=== PATIENT | male | born 1945 | race Caucasian/White ===

== ENCOUNTER → 2020-08-15 | Outpatient (CLI) | payer MEDICARE ==
[2015-08-28 15:11] VITALS: BP 152/67
[~2020-08-15] MED LIST: ASPI-886 PO; BENA1TAB6; DILT240C32 PO; LOVA40TA2; METF-658
--- NOTE | 2020-08-15 18:21 | CARD ---
MR#: [id number] Date of Study: 08/15/2020 Ordering Physician: SAMI MCMILLAN, Referring Physician: SAMI MCMILLAN, Tech: Jess Liang CASSY APPROVED REPORT EXAM: Two-dimensional and M-mode echocardiogram with Doppler and color Doppler. Other Information Quality : Good Rhythm : PVC's INDICATION Atrial Fibrillation 2D DIMENSIONS RVDd2.6 (2.9-3.5cm)Left Atrium(2D)4.0 (1.6-4.0cm) IVSd0.8 (0.7-1.1cm)Aortic Root(2D)3.1 (2.0-3.7cm) LVDd5.9 (3.9-5.9cm)LVOT Diameter2.6 (1.8-2.4cm) PWd0.9 (0.7-1.1cm)LVDs4.0 (2.5-4.0cm) FS (%) 31.5 %SV101.3 ml LVEF(%)58.6 (>50%) Aortic Valve AoV Peak Joe.113.2cm/sAoV VTI23.1cm AO Peak GR.5.1mmHgLVOT Peak Joe.90.7cm/s AO Mean GR.3mmHgAVA (VMAX)4.36cm2 MARYSOL (VTI)4.30cm2 Mitral Valve MV E Lqjhjrxk14.1cm/sMV DECEL [id number] MV A Xmuvrxqm37.9cm/sE/A Ratio0.8 Pulmonary Vein S1 Mkanoqsg04.8cm/sD2 Kiwlwvrc54.6cm/s LEFT VENTRICLE The Left Ventricle is borderline dilated. There is normal left ventricular wall thickness. The left v entricular systolic function is normal and the ejection fraction is within normal range. The Ejection Fraction is 55%. There is normal LV segmental wall motion. Transmitral Doppler flow pattern is Grade I-abnormal relaxation pattern. RIGHT VENTRICLE The right ventricle is normal size. The right ventricular systolic function is normal. ATRIA The left atrium is mildly dilated. The right atrium size is normal. The interatrial septum is intact with no evidence for an atrial septal defect or patent foramen ovale as noted on 2-D or Doppler imagi ng. AORTIC VALVE The aortic valve is calcified but opens well. Doppler and Color Flow revealed no significant aortic r egurgitation. There is no significant aortic valvular stenosis. MITRAL VALVE The mitral valve is calcified but opens well. Mitral annular calcification is mild. There is no evide nce of mitral valve prolapse. There is no mitral valve stenosis. Doppler and Color-flow revealed trac e mitral regurgitation. TRICUSPID VALVE The tricuspid valve is normal in structure and function. Doppler and Color Flow revealed no tricuspid valve regurgitation noted. There is no tricuspid valve stenosis. PULMONIC VALVE The pulmonic valve is not well visualized. Doppler and Color Flow revealed trace to mild pulmonic ian vular regurgitation. There is no pulmonic valvular stenosis. GREAT VESSELS The aortic root is normal in size. The ascending aorta is normal in size. The IVC was not visualized. PERICARDIAL EFFUSION There is no evidence of significant pericardial effusion. Critical Notification Critical Value: No <Conclusion> The left ventricular systolic function is normal and the ejection fraction is within normal range. Th e Ejection Fraction is 55%. There is normal LV segmental wall motion. Signed by : Frank Mccormick, Electronically Approved : 08/15/2020 18:21:21
== END ==
LOC: ECHO 12:28
PROVIDERS: ATTEND Internal Medicine Cardiovascular Disease
DX: I08.8 Other rheumatic multiple valve diseases (principal); I48.0 Paroxysmal atrial fibrillation
CPT/HCPCS: 93306